=== PATIENT | female | born 2000 | race American Indian/Alaskan Native ===

== ENCOUNTER 2022-03-24 14:40 | Emergency (ER) | payer MEDICAID ==
[2022-03-24] MEDS ORDERED: Sodium Chloride 0.9% 1,000 ML IV ONE (14:52)
== END 2022-03-24 15:45 | disposition home or self-care (01) ==
LOC: FB.ED 14:40
DX: T78.2XXA Anaphylactic shock, unspecified, initial encounter (principal); Z91.018 Allergy to other foods; Z91.048 Other nonmedicinal substance allergy status
CPT/HCPCS: 96360; 99283; J7030